=== PATIENT | female | born 1995 | race Two or more races ===

== ENCOUNTER 2023-08-07 19:33 | Emergency (ER) | payer MEDICAID ==
[~2023-08-07] VITALS: Ht 157.5 cm; Wt 49.1 kg
[2023-08-07 19:34] VITALS: TEMP 98.2
[2023-08-07 20:50] LABS: INFLUENZA A-RTPCR,COMBO NEGATIVE (NEGATIVE); INFLUENZA B-RTPCR,COMBO POSITIVE (NEGATIVE); RESPIRATORY SYNCYTIAL VRS-PCR NEGATIVE (NEGATIVE); SARS COVID19 RTPCR, COMBO NEGATIVE (NEGATIVE)
[2023-08-07] MEDS ORDERED: ALBU18HF12 IH (22:38)
[2023-08-07] MEDS ORDERED: AZIT250T9 PO (22:38)
[2023-08-07 22:40] VITALS: PULSE 75; RESP 17; O2SAT 97
[2023-08-07] MEDS: ALBUTEROL SULFATE 2.5 MG/0.5 ML NEB SOLUTION NEB ONE (22:40)
[2023-08-07] MEDS: IPRATROPIUM BROMIDE 0.5 MG/2.5 ML NEB SOLUTION NEB ONE (22:40)
[2023-08-07 22:45] VITALS: PULSE 74; RESP 17; O2SAT 97
[2023-08-07] MEDS: ALBUTEROL SULFATE HFA 90 MCG/PUFF 8 GM INHALER IH ONE (22:48)
[2023-08-07 23:05] VITALS: PULSE 82; RESP 19; O2SAT 100
[2023-08-07 23:08] VITALS: PULSE 81; RESP 18; O2SAT 99
[2023-08-07 23:15] VITALS: BP 121/78; PULSE 81; RESP 16
== END 2023-08-07 23:38 | disposition home or self-care (01) ==
LOC: EMS 19:34
DX: J45.909 Unspecified asthma, uncomplicated (principal); F17.210 Nicotine dependence, cigarettes, uncomplicated; Z20.822 Contact with and (suspected) exposure to COVID-19
CPT/HCPCS: 99284; 94060; 0241U; 71045; 94640; J3535; J7613

== ENCOUNTER 2025-02-06 13:41 | Emergency (ER) | payer MEDICAID ==
[~2025-02-06] VITALS: Ht 157.5 cm; Wt 59.1 kg
[~2025-02-06 13:41] MED LIST: ALBU18HF12 IH
[2025-02-06 13:56] VITALS: BP 114/75; PULSE 70; RESP 16; TEMP 98.6; O2SAT 98
[2025-02-06 15:15] LABS: PLATELET COUNT (AUTO) 281 K/uL (150-450); RED BLOOD CELL COUNT(AUTO) 4.62 MIL/uL (4.00-5.20); RED CELL DISTRIBUTION WIDTH 13.5 % (11.5-14.5); WHITE BLOOD COUNT (AUTO) 7.4 K/uL (4.5-11.0)
[2025-02-06 15:26] LABS: CALCIUM, TOTAL 8.9 mg/dL (8.8-10.5); CREATININE 0.65 mg/dL (0.60-1.30); GLOMERULAR FILTR. RATE CALC > 60 mL/min (>60); GLUCOSE,RANDOM 67 mg/dL (70-110); SODIUM SERUM 134 mmol/L (136-145); UREA NITROGEN, BLOOD 9 mg/dL (7-18)
[2025-02-06] MEDS: PYRIDOXINE HCL 50 MG TABLET PO ONE (16:13)
[2025-02-06 16:23] LABS: APPEARANCE,URINE CLEAR (CLEAR); GLUCOSE, URINE (UA) NEGATIVE (NEGATIVE); LEUKOCYTE ESTERASE ,URINE NEGATIVE (NEGATIVE); NITRATE,URINE NEGATIVE (NEGATIVE); OCCULT BLOOD,URINE SMALL (NEGATIVE); SPECIFIC GRAVITIY, URINE 1.014 (1.003-1.030)
[2025-02-06 16:48] LABS: SQUAMOUS EPITHELIAL CELL,UR Few /LPF (None Seen)
[2025-02-06] MEDS ORDERED: FAMO20 PO (18:36)
[2025-02-06] MEDS ORDERED: DOXY1TAB6 PO (18:36)
[2025-02-06] MEDS: FAMOTIDINE 20 MG TABLET PO ONE (19:00)
== END 2025-02-06 19:24 | disposition home or self-care (01) ==
LOC: EMS 13:41
DX: O20.0 Threatened abortion (principal); O99.320 Drug use complicating pregnancy, unspecified trimester; F12.90 Cannabis use, unspecified, uncomplicated; O21.0 Mild hyperemesis gravidarum; Z79.899 Other long term (current) drug therapy
CPT/HCPCS: 76801; 80048; 81001; 82962; 84702; 85025; 99284